=== PATIENT | male | born 1990 | race Caucasian/White ===

== ENCOUNTER → 2017-11-27 | Outpatient (CLI) | payer BC ==
--- NOTE | 2017-11-27 13:36 | RAD ---
Bilateral renal complete ultrasound 11/27/2017 Comparison: Frequent urination. Comparison: None. Findings: Right kidney measures 11.2 centers in length without collecting system dilatation. The distended urinary bladder is unremarkable. Left kidney measures 11.7 cm without clucking system dilatation. Impression: Unremarkable renal sonogram.
== END | disposition home or self-care (01) ==
LOC: US 11:11
PROVIDERS: ATTEND Family Medicine
DX: R35.0 Frequency of micturition (principal)
CPT/HCPCS: 76770

== ENCOUNTER → 2021-02-18 | Outpatient (CLI) | payer BC ==
--- NOTE | 2021-02-18 09:36 | RAD ---
Exam Date: 02/18/2021 9:15 AM XR HAND_LEFT 2 VIEWS Indication: Reason: HAND PAIN / Spl. Instructions: / History: FINDINGS/ IMPRESSION: No acute fracture or dislocation. Alignment and joint spaces are maintained. The soft tissues are w ithin normal limits. Electronically signed by: Juvenal Da Silva MD (02/18/2021 9:34 AM) [id number]
== END ==
LOC: RAD 09:07
PROVIDERS: ATTEND Physician Assistant
DX: M79.642 Pain in left hand (principal)
CPT/HCPCS: 73120